=== PATIENT | female | born 1930 | race African-American/Black ===

== ENCOUNTER 2017-11-16 05:03 | Day surgery (SDC) | payer MEDICARE, MEDICAID ==
--- NOTE | 2017-11-12 15:14 | Pre-Procedure Note/Attestation ---
Pre-Procedure Note/Attestation Complete Prior to Procedure Planned Procedure: left Procedure Narrative: PHACO WITH IOL, Indications for Procedure Pre-Operative Diagnosis: CATARACT Attestation I attest that I discussed the nature of the procedure; its benefits; risks and complications; and alternatives (and the risks and benefits of such alternatives ), prior to the procedure, with the patient (or the patient's legal customer engagement representative). I attest that, if there was a reasonable possibility of needing a blood transfusion, the patient (or the patient's legal customer engagement representative) was given the [facility] standardized written summary, pursuant to the [place] Blood Safety Act ([place] Health and Safety Code # 1645, as amended). I attest that I re-evaluated the patient just prior to the surgery and that there has been no change in the patient's H&P, except as documented below: CB KNIGHT Nov 12, 2017 15:14
--- NOTE | 2017-11-12 15:21 | Opthalmology H&P ---
Ophthalmology H&P H&P Chief Complaint: decreased vision in left eye HPI Vision Affects Ability to: read, focus/use eyes together, manage personal affairs HPI Narrative BLURRY VISION Exam Visual Acuity: OD; CF OS; CF Tension: OD; 17 OS; 17 Eye Exam: normal OU: external exam, palpebral fissure-width, marginal reflex distance, levator function, corneas, anterior chambers, fundus exam, findings: lens - OD; NS OS; NS Assessment/Plan Diagnosis: (1) Cataract, nuclear sclerotic, left eye Treatment Plan: cataract extraction w/ lens implant Goals of Treatment: improvement of vision, enhance quality of life Attestation Attestation The risks and benefits of the surgery as well as alternative procedures were explained to the patient in detail. CB KNIGHT Nov 12, 2017 15:21
[2017-11-13 11:59] LABS: BASOPHILS % (AUTO) 0.6 % (0.0-2.0); EOSINOPHILS % (AUTO) 1.8 % (0.0-3.0); HEMATOCRIT 39.4 % (37.0-47.0); HEMOGLOBIN 12.8 G/DL (12.0-16.0); LYMPHOCYTES % (AUTO) 26.5 % (20.0-45.0); MEAN CORPUSCULAR VOLUME 90 FL (80-99); MONOCYTES % (AUTO) 6.1 % (1.0-10.0); NEUTROPHILS % (AUTO) 64.9 % (45.0-75.0); PLATELET COUNT 191 K/UL (150-450); RED BLOOD COUNT 4.37 M/UL (4.20-5.40); RED CELL DISTRIBUTION WIDTH 13.1 % (11.6-14.8); WHITE BLOOD COUNT 6.5 K/UL (4.8-10.8)
[2017-11-13 12:13] LABS: ALANINE AMINOTRANSFERASE 16 U/L (12-78); ALBUMIN 3.7 G/DL (3.4-5.0); ALBUMIN/GLOBULIN RATIO 0.9 (1.0-2.7); ALKALINE PHOSPHATASE 120 U/L (46-116); ANION GAP 8 mmol/L (5-15); ASPARTATE AMINO TRANSFERASE 14 U/L (15-37); BILIRUBIN,TOTAL 0.4 MG/DL (0.2-1.0); BLOOD UREA NITROGEN 26 mg/dL (7-18); CALCIUM 9.1 MG/DL (8.5-10.1); CARBON DIOXIDE 29 MMOL/L (21-32); CHLORIDE 104 MMOL/L (98-107); POTASSIUM 4.3 MMOL/L (3.5-5.1); SODIUM 141 MMOL/L (136-145)
[~2017-11-16] VITALS: Ht 176.5 cm; Wt 71.7 kg
[2017-11-16] VITALS (8 sets, daily range): BP systolic 116–141; BP diastolic 51–67
[~2017-11-16 05:03] MED LIST: ASPIRIN81 MG NG; ATORVASTATIN CA40 MG ORAL; AZITHROMYCIN250 MG ORAL; BENADRYL25 MG ORAL; FEROSUL325 M1 PO; LEVAQUIN500 MG ORAL; LOVENOX10 M4 SUBQ; METFORMIN HCL500 M1 ORAL; MOM30 ML ORAL; NIFEDIPINE ER60 M2 ORAL; NORCO1 E1 ORAL; OMEPRAZOLE20 M2 ORAL; PREDNISONE20 MG ORAL; PROCARDIA10 MG ORAL; RESTORIL7.5 MG ORAL; VENTOLIN HFA18 GM INH; venofer IV
[2017-11-16] MEDS ORDERED: Sterile Water Irrig 1000ml IRRIG ONE (05:04)
[2017-11-16] MEDS ORDERED: NS Irrig 1000ml ONE (05:04)
[2017-11-16] MEDS ORDERED: LR 1000ml ONE (05:04)
[2017-11-16] MEDS ORDERED: Midazolam 2mg/2ml Inj ONE (05:04)
--- NOTE | 2017-11-16 05:15 | Pre-op HX & Phy Repo 2 SIG ---
DATE OF ADMISSION: 11/16/2017 NOTE: POOR AUDIO PRESURGICAL INTERNAL MEDICINE HISTORY AND PHYSICAL DATE OF EVALUATION: 11/13/2017 REASON FOR EVALUATION: I was asked by Dr. Cristofer Miller to see this 87-year-old female who is going for elective surgery on the left eye. The patient has nuclear cataract in left eye. Please see full description and History and Physical by Dr. Cristofer Miller. The patient was evaluated. Chart was reviewed. PAST MEDICAL HISTORY AND REVIEW OF SYSTEMS: Denies history of heart attack. No stroke or seizures. Denies history of respiratory problem. The patient has a history of anemia, type 2 diabetes mellitus, chronic bronchitis, left hip fracture as well as the back pain. No thyroid problem. PAST SURGICAL HISTORY: Tonsillectomy and left hip fracture, open reduction and internal fixation. ALLERGIES: To penicillin and codeine. PRESENT MEDICATIONS: Include metformin, atorvastatin, sulfate, omeprazole for GERD, Ventolin inhaler, omega-3 fatty acid, vitamin D and multivitamin, also take baby aspirin. HABITS: The patient denies history of smoke. Alcohol occasionally. No street drugs. FAMILY HISTORY: Mother has diabetes and father after car accident. PHYSICAL EXAMINATION: GENERAL: The patient is alert, elderly female who is not in acute distress. VITAL SIGNS: Blood pressure is 142/68, temperature 97.3, pulse 65, respirations 18, and O2 saturation 98% on room air. SKIN: warm and pale. No rashes. No open wounds. HEENT: Head is normocephalic. Ears, clear. Eyes, full description per Dr. Cristofer Miller. Mouth clear and moist. NECK: No jugular vein distention. Carotid artery +2. No bruits. No thyroid gland enlargement. No lymph node enlargement. CHEST: No deformity or asymmetry. LUNGS: Clear. No rales or rhonchi. HEART: Sinus . No ectopy. No murmur. No S3 or S4. ABDOMEN: Soft, benign. No palpable mass. No rebound. EXTREMITIES: No edema. GENITOURINARY: No CVA tenderness. No dysuria. NERVOUS SYSTEM: No tremor. No nystagmus. LABORATORY AND DIAGNOSTIC DATA: ECG, normal sinus rhythm at 67 per minute, minimal voltage for left ventricular hypertrophy and septal infarct, old. Lab work pending. IMPRESSION: 1. Cataract, left eye. 2. Chronic obstructive pulmonary disease. 3. Diabetes mellitus type 2. 4. Gastroesophageal reflux disease. 5. History of left hip fracture and open reduction and internal fixation of the hip. PLAN: Cataract extraction, left eye with intraocular lens implant per Dr. Cristofer Miller. CONCLUSION: The patient's vital signs stable. She has history of diabetes and COPD. The patient has diagnosis of history of [place] on EKG, old. Otherwise, the patient to be NPO after midnight Thursday for 11/16/2017 surgery in the left eye . The patient's condition optimized for surgery. Lisbeth Singh M.D. DR: James JOB#: [id number] CC:
[2017-11-16] MEDS ORDERED: Phenylephrine 10% Opth Soln 5ml ONE (05:48)
[2017-11-16] MEDS ORDERED: Tobramycin Op Soln 0.3% 5ml ONE (05:49)
[2017-11-16] MEDS ORDERED: Cyclopentolate 1% Opth Sol 2ml ONE (05:49)
[2017-11-16] MEDS ORDERED: Akten 3.5% 1ml Btl ONE (05:49)
[2017-11-16] MEDS ORDERED: Tetracaine 0.5% Opth 4ml Soln ONE (05:49)
[2017-11-16] MEDS ORDERED: Tropicamide 1% Opth 15ml Soln ONE (05:49)
[2017-11-16] MEDS ORDERED: Ketorolac Tromethamine Opth 5ml Soln ONE (05:49)
[2017-11-16] MEDS ORDERED: Proparacaine 0.5% Opth Soln 15ml ONE (05:50)
[2017-11-16] MEDS: Cyclopentolate 1% Opth Sol 2ml LEFT EYE SCH ×3 (05:53→06:20)
[2017-11-16] MEDS: Tropicamide 1% Opth 15ml Soln LEFT EYE SCH ×3 (05:53→06:20)
[2017-11-16] MEDS: Phenylephrine 10% Opth Soln 5ml LEFT EYE SCH ×3 (05:54→06:20)
[2017-11-16] MEDS: Tobramycin Op Soln 0.3% 5ml LEFT EYE SCH ×3 (05:54→06:20)
[2017-11-16] MEDS ORDERED: Ketorolac Tromethamine Opth 5ml Soln LEFT EYE SCH (07:00)
[2017-11-16] MEDS ORDERED: Tetracaine 0.5% Opth 4ml Soln LEFT EYE ONE (07:00)
[2017-11-16] MEDS ORDERED: Proparacaine 0.5% Opth Soln 15ml LEFT EYE ONE (07:00)
[2017-11-16] MEDS ORDERED: Akten 3.5% 1ml Btl LEFT EYE ONE (07:00)
[2017-11-16] MEDS ORDERED: BSS 500ml btl ONE (07:34)
[2017-11-16] MEDS ORDERED: EPINEPHrine 1mg/1ml Amp ONE (07:35)
[2017-11-16] MEDS ORDERED: Sodium Hyaluronate 14 mg/ml 0.85ml ONE (07:35)
[2017-11-16] MEDS ORDERED: BSS 15ml BTL ONE (07:35)
[2017-11-16] MEDS ORDERED: LR 1000ml 1,000 ML IVLG SCH (07:42)
[2017-11-16] MEDS ORDERED: fentaNYL 100 mcg/2 mL IV PRN (07:45)
[2017-11-16] MEDS ORDERED: LR 1000ml 1,000 ML IV SCH (07:45)
--- NOTE | 2017-11-16 07:45 | Anethesia Preoperative Eval ---
Anesthesia Pre-op PMH/ROS General Date of Evaluation: Nov 16, 2017 Time of Evaluation: 07:15 Anesthesiologist: Edith ASA Score: ASA 3 Mallampati Score Class I : Soft palate, uvula, fauces, pillars visible Class II: Soft palate, uvula, fauces visible Class III: Soft palate, base of uvula visible Class IV: Only hard plate visible Mallampati Classification: Class II Surgeon: Angela Diagnosis: Cataract left eye Surgical Procedure: Extraction of cataract with IOL Family History: no anesthesia problems Allergies: Coded Allergies: CODEINE (Unverified Allergy, Unknown, 02/08/14) ETHER (Unverified Allergy, Unknown, 02/08/14) PENICILLINS (Unverified Allergy, Unknown, 02/08/14) Medications: see eMAR Past Medical History Cardiovascular: Reports: HTN, Denies: CAD, AR, valve dz, arrhythmia, other Pulmonary: Denies: asthma, COPD, KERA, other Gastrointestinal/Genitourinary: Reports: GERD, Denies: CRI, ESRD, other Neurologic/Psychiatric: Denies: dementia, CVA, depression/anxiety, TIA, other Endocrine: Denies: DM, hypothyroidism, steroids, other HEENT: Reports: cataract (L), cataract (R), Denies: glaucoma, NOATAK (L), NOATAK (R), other Hematology/Immune: Denies: anemia, DVT, bleeding disorder, other Musculoskeletal/Integumentary: Denies: OA, RA, DJD, DDD, edema, other PMH Narrative: HTN, GERD PSxH Narrative: T&A, left hip, cataract right eye, ovarian cystectoy Anesthesia Pre-op Phys. Exam Physician Exam Last Vital Signs Date Time Temp Pulse Resp B/P (MAP) Pulse Ox O2 Delivery O2 Flow Rate FiO2 11/16/17 06:00 97.5 64 20 130/67 99 Room Air 97.5 Constitutional: NAD Neurologic: CN 2-12 intact Cardiovascular: RRR, no M/R/G Respiratory: CTA Gastrointestinal: S/NT/ND Airway Exam Mallampati Score: Class II MO: full ROM: full Teeth: missing Anesthesia Pre-op A/P Risk Assessment & Plan Assessment: Class 3 patient for cataract extraction with IOL implant Plan: JEAN MARIE SOLORZANO M.D. Nov 16, 2017 07:45
--- NOTE | 2017-11-16 07:46 | Immediate Post-Op Evaluation ---
Immediate Post-Op Evalulation Immediate Post-Op Evalulation Procedure: Extraction of cataract with IOL left eye Date of Evaluation: Nov 16, 2017 Time of Evaluation: 08:35 IV Fluids: 600 Blood Pressure Systolic: 141 Blood Pressure Diastolic: 66 Pulse Rate: 72 Respiratory Rate: 17 O2 Sat by Pulse Oximetry: 100 Temperature (Fahrenheit): 98.7 Pain Score (1-10): 0 Nausea: No Vomiting: No Complications No complication Patient Status: awake, patent, none Hydration Status: adequate Drug: None JEAN MARIE PANDYA M.D. Nov 16, 2017 07:46
--- NOTE | 2017-11-16 08:37 | 48 Hour Post Anesthesia Eval ---
Post Anesthesia Evaluation Procedure: Extraction of cataract with IOL left eye Date of Evaluation: Nov 16, 2017 Time of Evaluation: 09:00 Blood Pressure Systolic: 138 0: 67 Pulse Rate: 74 Respiratory Rate: 18 O2 Sat by Pulse Oximetry: 100 Airway: patent Nausea: No Vomiting: No Pain Intensity: 0 Hydration Status: adequate Cardiopulmonary Status: Stable Mental Status/LOC: patient returned to baseline Follow-up Care/Observations: As per surgery Post-Anesthesia Complications: No anesthetic complication Follow-up care needed: N/A JEAN MARIE PANDYA M.D. Nov 16, 2017 08:37
--- NOTE | 2017-11-16 14:08 | Brief Operative Note ---
Immediate Post Operative Note Operative Note Chief Complaint: blurry vision Pre-op Diagnosis: CATARACT, OS Procedure: phaco with IOL, OS Post-op Diagnosis: pseudophakia Post-op Diagnosis: same as pre-op Findings: consistent w/pre-op dx studies Surgeon: Angela Anesthesiologist: Edith Anesthesia: MAC Specimen: none Complications: none Condition: stable Fluids: LR Estimated Blood Loss: none Drains: none Implant(s) used?: Yes CB KNIGHT Nov 16, 2017 14:08
--- NOTE | 2017-11-16 14:10 | Operative Note - PDOC ---
Operative Note Operative Note Date of Operation/Procedure: Nov 16, 2017 Chief Complaint: blurry vision Pre-op Diagnosis: CATARACT, OS Procedure: phaco with IOL, OS Post-op Diagnosis: pseudophakia Post-op Diagnosis: same as pre-op Operative Findings: consistent w/pre-op dx studies Surgeon: Angela Anesthesiologist: Edith Anesthesia: MAC Specimen: none Complications: none Condition: stable Fluids: LR Estimated Blood Loss: none Drains: none Implant(s) used?: Yes Indications for Procedure cataract Description of Procedure This patient has been complaining visually significant cataract in the affected eye with the best corrected visual acuity under moderate glare conditions worse. The patient complains of difficulties with glare in performing activities of daily living and wants to manage personal affairs with comfort and accuracy and see well enough to move with safety at home and outdoors. The risks, benefits and alternatives of the procedure were discussed with the patient in the office prior to scheduling surgery. All questions from the patient were answered after the surgical procedure was explained in detail. The risks of the procedure as explained to the patient include, but are not limited to, pain, infection, bleeding, loss of vision, retinal detachment, need for further surgery, loss of lens nucleus, double vision, etc. Alternative procedures were discussed which include, to do nothing or seek a second opinion. Informed consent for this procedure was obtained from the patient. The patient was referred to a primary care physician for a cardiopulmonary clearance prior to surgery, after proper evaluation was done patient was properly scheduled for outpatient surgery. The patient was brought to the operating room where the anesthesiologist established I.V. lines and cardiac monitoring leads. Mild intravenous sedation was administered. The patient was then prepared with a 5% solution of povidone- iodine to the conjunctival fornix and lashes, and a 10% solution of povidone- iodine to the lids and periorbital skin. The patient was then draped in the usual sterile fashion. A lid speculum was then placed in the operative eye. A keratome blade was then used to create a biplanar incision into the anterior chamber. Viscoelastics was then instilled into the anterior chamber. A capsulorrhexis was then fashioned with an utrata forceps followed by a G 27 cannula was then used to to hydrodissect and hydro delineate the lens. Paracentesis incision was made at 3 o'clock with sharp blade. The phacoemulsification unit, after being properly adjusted and tested, was then used to emulsify the nucleus. Residual cortical material was aspirated with the irrigation and aspiration unit. Healon was then instilled into the anterior chamber. The corneal wound was then enlarged to the size of the optic with the yessi keratome blade. The intraocular lens was then inspected for right power and size and thought to be satisfactory. Then the lens was gently placed in the capsular bag. Positioning within the capsular bag was confirmed by direct visualization. Optic centration was accomplished with a Sinskey hook. Viscoelastics was removed from the anterior chamber using the irrigation and aspiration unit. The corneal wound was then tested for leaks and none were found. The lid speculum were then removed. Sponge and needle counts were correct. An eye patch and shield were placed over the operative eye. The patient was taken to the recovery room in stable condition. There were no complications. The patient tolerated the procedure well. The patient was then transferred to the ambulatory surgery unit in stable and satisfactory condition , was given detailed written instructions and asked to follow up in the office the next day. Dawna CHINO JAMES Nov 16, 2017 14:09
[2017-11-16] MEDS ORDERED: Pilocarpine 2% Opth 15ml Soln ONE (15:09)
[2017-11-16] MEDS ORDERED: Povidone-Iodine 5% opth solution ONE (15:10)
--- NOTE | 2017-11-17 18:50 | Cardiology Report ---
APPROVED REPORT EKG Measurement Heart [id number] Normal sinus rhythm Minimal voltage criteria for LVH, may be normal variant Septal infarct, age undetermined Abnormal ECG
== END 2017-11-16 10:50 | disposition home or self-care (01) ==
LOC: SUR 05:03
DX: H25.12 Age-related nuclear cataract, left eye (principal); I10 Essential (primary) hypertension; K21.9 Gastro-esophageal reflux disease without esophagitis; Z88.6 Allergy status to analgesic agent; Z88.0 Allergy status to penicillin; E11.9 Type 2 diabetes mellitus without complications; Z79.84 Long term (current) use of oral hypoglycemic drugs; Z79.82 Long term (current) use of aspirin; J44.9 Chronic obstructive pulmonary disease, unspecified; I25.2 Old myocardial infarction
CPT/HCPCS: 36415; 66984; 80053; 82962; 85025; 85610; 85730; 93005; J0171; J2250; J3370; J7120; V2632; 94003; 94150